=== PATIENT | female | born 1960 | race American Indian/Alaskan Native ===

== ENCOUNTER 2017-01-25 11:04 | Emergency (ER) | payer MEDICAID ==
[2017-01-25 11:14] VITALS: BP 176/96
[2017-01-25] MEDS ORDERED: HYDROmorphone 0.5 MG/0.5 ML Syringe IVPUSH ONE (11:39)
[2017-01-25] MEDS ORDERED: Sodium Chloride 0.9% 10 ML Syringe FLUSH PRN ×2 (11:39→13:06)
[2017-01-25] MEDS ORDERED: Sodium Chloride 0.9% 500 ML IV ONE (11:40)
--- NOTE | 2017-01-25 11:45 | EDM.PDOC ---
ED HPI GI/ABDOMINAL - General Chief Complaint: Back Pain or Injury Stated Complaint: SENT FROM [facility] FOR SIDE AND BACK PAIN Time Seen by Provider: 01/25/17 11:22 Source of Information: Reports: Patient History Limitations: Reports: No limitations - History of Present Illness INITIAL COMMENTS - FREE TEXT/NARRATIVE: Patient is a 56-year-old female who presents to the ED complaining of left upper quadrant abdominal pain, left flank pain, and left lower back pain. Started approximately 2 days ago while sitting. Pain has been constant with waxing waning in intensity since onset. She complains of more discomfort to her left CVA with radiation to her left upper quadrant. States she's had diarrhea which is normal for her. She's noticed some increase in flatulence. There's been no blood in her stool. She denies any pain with urination, nausea/ vomiting, chest pain, shortness of breath, increased acid reflux, dizziness, or any additional complaints. Patient does have history of palpitations and currently has a Holter monitor in place. She does have a history of hypertension and is on multiple medications. In addition she's diabetic with the last A1c is 7.0. She denies any previous history of similar discomfort. Pain currently is a 7/10. Timing/Duration: Reports: Constant, Waxing/waning Location: other (Left CVA) Quality: Reports: ache, stabbing, throbbing, radiating Severity: moderate Improves with: Reports: other (Nothing) Worsens with: Reports: palpation, other (Movement) Context: Denies: sick contact, recent trauma, lifting, activity/exercise Associated Symptoms (-Female): Reports: back pain, diarrhea (Chronic), loss of appetite. Denies: chest pain, groin pain, fever/chills, nausea/vomiting Treatments [employer]: Reports: Other (see below) (None stated) - Related Data Allergies/ADRs: Allergies Allergy/AdvReac Type Severity Reaction Status Date / Time diphenhydramine HCl Allergy Rash Verified 01/25/17 11:14 [From Benadryl] Home Meds: Home Meds Doxazosin [Doxazosin Mesylate] 2 mg PO DAILY 04/29/14 [History] Insulin Aspart [Novolog] 0 unit SQ DAILY 04/29/14 [History] Losartan [Cozaar] 100 mg PO DAILY 04/29/14 [History] Omeprazole 40 mg PO DAILY 04/29/14 [History] PARoxetine HCl [Paroxetine HCl] 60 mg PO DAILY 04/29/14 [History] atorvaSTATin [Lipitor] 20 mg PO DAILY 04/29/14 [History] Gemfibrozil 600 mg PO BID 06/17/14 [History] Liraglutide [Victoza] 0.6 units INJECT DAILY 06/17/14 [History] Acetaminophen/HYDROcodone [[place] 325-5 MG] 1 tab PO Q6H PRN #20 tablet 01/25/17 [Rx] Ondansetron [Zofran ODT] 4 mg PO Q6H PRN #15 tab.dis 01/25/17 [Rx] Past Medical History Cardiovascular History: Reports: Hypertension [employer] History: Reports: Endocrine/Metabolic History: Reports: Diabetes, type II - Past Surgical History GI Surgical History: Reports: Appendectomy Social & Family History - Tobacco Use Smoking Status *Q: Current Every Day Smoker Years of Tobacco use: 40 Packs/Tins Daily: 1 - Caffeine Use Caffeine Use: Reports: Soda - Alcohol Use Days Per Week of Alcohol Use: 0 - Recreational Drug Use Recreational Drug Use: No Recreational Drug Type: Reports: Other (see below) ED ROS GENERAL - Review of Systems Review Of Systems: See Below Constitutional: Reports: decreased appetite. Denies: fever, chills HEENT: Reports: No symptoms Respiratory: Denies: Shortness of Breath, Pleuritic Chest Pain, Cough, Sputum, Hemoptysis Cardiovascular: Reports: Blood pressure problem, Palpitations. Denies: Chest pain, Dyspnea on exertion, Edema, Lightheadedness, Orthopnea, PND, Syncope GI/Abdominal: Reports: Abdominal pain, Diarrhea, Decreased appetite, Flatus. Denies: Black stool, Bloody stool, Constipation, Distension, Hematemesis, Melena , Nausea, Vomiting : Reports: flank pain. Denies: dysuria, frequency, hematuria, pain, urgency Musculoskeletal: Reports: back pain (Left CVA low back) Skin: Denies: rash Neurological: Denies: Dizziness, Weakness ED EXAM, GI/ABD - Physical Exam Exam: See Below Exam Limited By: No limitations General Appearance: alert, WD/WN, mild distress Ears: hearing grossly normal Throat/Mouth: Normal voice, No airway compromise Neck: normal inspection, supple Respiratory/Chest: no respiratory distress, lungs clear, normal breath sounds, no accessory muscle use, chest non-tender Cardiovascular: normal peripheral pulses, regular rate, rhythm, no murmur GI/Abdominal: normal bowel sounds, soft, tenderness (Left upper/lower quadrant/ left flank/left CVA) Back Exam: normal inspection, CVA tenderness (L). No: decreased range of motion , muscle spasm, paraspinal tenderness, vertebral tenderness Extremities: normal inspection, non-tender, no pedal edema Neurological: alert, oriented, CN II-XII intact, normal cognition, no motor/ sensory deficits Psychiatric: normal affect, normal mood Skin Exam: Warm, Dry, Intact, Normal color, No rash Course - Vital Signs Last Recorded V/S: Last Vital Signs Temp 97.9 F 01/25/17 11:11 Pulse 81 01/25/17 11:11 Resp 18 01/25/17 11:11 BP 176/96 H 01/25/17 11:11 Pulse Ox 97 01/25/17 11:11 - Orders/Labs/Meds Orders: Active Orders 24 hr Category Date Time Status EKG Documentation Completion [RC] STAT Care 01/25/17 11:39 Active Peripheral IV Care [RC] . DIRECTED Care 01/25/17 11:40 Active Peripheral IV Insertion Adult [OM.PC] Stat Oth 01/25/17 11:39 Ordered Labs: Laboratory Tests 01/25/17 01/25/17 01/25/17 Range/Units 11:30 11:30 11:30 WBC 12.07 H (3.98-10.04) K/mm3 RBC 4.16 (3.98-5.22) M/mm3 Hgb 13.0 (11.2-15.7) gm/L Hct 38.9 (34.1-44.9) % MCV 93.5 (79.4-94.8) fl MCH 31.3 (25.6-32.2) pg MCHC 33.4 (32.2-35.5) g/dl RDW Std Deviation 45.6 (36.4-46.3) fL Plt Count 255 (182-369) K/mm3 MPV 10.9 (9.4-12.3) fl Neut % (Auto) 60.9 (34.0-71.1) % Lymph % (Auto) 29.4 (19.3-51.7) % [place] % (Auto) 7.7 (4.7-12.5) % Eos % (Auto) 1.2 (0.7-5.8) Baso % (Auto) 0.4 (0.1-1.2) % Neut # (Auto) 7.34 H (1.56-6.13) K/mm3 Lymph # (Auto) 3.55 (1.18-3.74) K/mm3 [place] # (Auto) 0.93 H (0.24-0.36) K/mm3 Eos # (Auto) 0.15 (0.04-0.36) K/mm3 Baso # (Auto) 0.05 (0.01-0.08) K/mm3 Sodium 140 (136-145) mEq/L Potassium 4.0 (3.5-5.1) mEq/L Chloride 104 (98-107) mEq/L Carbon Dioxide 23 (21-32) mEq/L Anion Gap 17.0 H (5-15) BUN 31 H (7-18) mg/dL Creatinine 1.1 H (0.55-1.02) mg/dL Est Cr Clr Drug Dosing 48.73 mL/min Estimated GFR (MDRD) 51 (>60) mL/min BUN/Creatinine Ratio 28.2 H (14-18) Glucose 131 H (74-106) mg/dL Calcium 9.3 (8.5-10.1) mg/dL Total Bilirubin 0.4 (0.2-1.0) mg/dL AST 107 H (15-37) U/L ALT 145 H (14-59) U/L Alkaline Phosphatase 105 (46-116) U/L Troponin I < 0.017 (0.00-0.056) ng/mL C-Reactive Protein < 0.2 (<1.0) mg/dL Total Protein 7.7 (6.4-8.2) g/dl Albumin 4.0 (3.4-5.0) g/dl Globulin 3.7 gm/dL Albumin/Globulin Ratio 1.1 (1-2) Triglycerides 257 H (<150) mg/dL Lipase 908 H (73-393) U/L Urine Color (Yellow) Urine Appearance (Clear) Urine pH (5.0-8.0) Ur Specific [place] (1.005-1.030) Urine Protein (Negative) Urine Glucose (UA) (Negative) Urine Ketones (Negative) Urine Occult Blood (Negative) Urine Nitrite (Negative) Urine Bilirubin (Negative) Urine Urobilinogen (0.2-1.0) Ur Leukocyte Esterase (Negative) Urine RBC (0-5) /hpf Urine WBC (0-5) /hpf Ur Epithelial Cells (0-5) /hpf Urine Bacteria (FEW) /hpf Urine Mucus (FEW) /hpf 01/25/17 Range/Units 12:17 WBC (3.98-10.04) K/mm3 RBC (3.98-5.22) M/mm3 Hgb (11.2-15.7) gm/L Hct (34.1-44.9) % MCV (79.4-94.8) fl MCH (25.6-32.2) pg MCHC (32.2-35.5) g/dl RDW Std Deviation (36.4-46.3) fL Plt Count (182-369) K/mm3 MPV (9.4-12.3) fl Neut % (Auto) (34.0-71.1) % Lymph % (Auto) (19.3-51.7) % [place] % (Auto) (4.7-12.5) % Eos % (Auto) (0.7-5.8) Baso % (Auto) (0.1-1.2) % Neut # (Auto) (1.56-6.13) K/mm3 Lymph # (Auto) (1.18-3.74) K/mm3 [place] # (Auto) (0.24-0.36) K/mm3 Eos # (Auto) (0.04-0.36) K/mm3 Baso # (Auto) (0.01-0.08) K/mm3 Sodium (136-145) mEq/L Potassium (3.5-5.1) mEq/L Chloride (98-107) mEq/L Carbon Dioxide (21-32) mEq/L Anion Gap (5-15) BUN (7-18) mg/dL Creatinine (0.55-1.02) mg/dL Est Cr Clr Drug Dosing mL/min Estimated GFR (MDRD) (>60) mL/min BUN/Creatinine Ratio (14-18) Glucose (74-106) mg/dL Calcium (8.5-10.1) mg/dL Total Bilirubin (0.2-1.0) mg/dL AST (15-37) U/L ALT (14-59) U/L Alkaline Phosphatase (46-116) U/L Troponin I (0.00-0.056) ng/mL C-Reactive Protein (<1.0) mg/dL Total Protein (6.4-8.2) g/dl Albumin (3.4-5.0) g/dl Globulin gm/dL Albumin/Globulin Ratio (1-2) Triglycerides (<150) mg/dL Lipase (73-393) U/L Urine Color Yellow (Yellow) Urine Appearance Clear (Clear) Urine pH 6.0 (5.0-8.0) Ur Specific [place] 1.020 (1.005-1.030) Urine Protein 2+ H (Negative) Urine Glucose (UA) Negative (Negative) Urine Ketones Negative (Negative) Urine Occult Blood Trace-intact H (Negative) Urine Nitrite Negative (Negative) Urine Bilirubin Negative (Negative) Urine Urobilinogen 0.2 (0.2-1.0) Ur Leukocyte Esterase Negative (Negative) Urine RBC 0-5 (0-5) /hpf Urine WBC 0-5 (0-5) /hpf Ur Epithelial Cells 0-5 (0-5) /hpf Urine Bacteria Few (FEW) /hpf Urine Mucus Not seen (FEW) /hpf Meds: Medications Discontinued Medications Generic Name Dose Route Start Last Admin Trade Name Freq PRN Reason Stop Dose Admin Diatrizoate Meglum/Diatrizoate Sod 120 ml 01/25/17 13:06 01/25/17 13:55 Gastrografin 37% PO 01/25/17 13:07 90 ml ONETIME ONE Administration Hydromorphone HCl 0.5 mg 01/25/17 11:39 01/25/17 12:13 Dilaudid IVPUSH 01/25/17 11:40 0.5 mg ONETIME ONE Administration Sodium Chloride 500 mls @ 125 mls/hr 01/25/17 11:40 01/25/17 12:10 Normal Saline IV 01/25/17 15:39 125 mls/hr .BOLUS ONE Administration Iopamidol 100 ml 01/25/17 13:06 01/25/17 13:55 Isovue-300 (61%) IVPUSH 01/25/17 13:07 100 ml ONETIME ONE Administration Sodium Chloride 10 ml 01/25/17 11:39 01/25/17 12:14 Saline Flush FLUSH 10 ml ASDIRECTED PRN Administration Keep Vein Open Sodium Chloride 10 ml 01/25/17 13:06 01/25/17 13:55 Saline Flush FLUSH 10 ml ONETIME PRN Administration IV FLUSH - Re-Assessments/Exams Free Text/Narrative Re-Assessment/Exam: IV started with normal saline, Zofran 4 mg IVP, and Dilaudid 0.5 mg IVP. Initial labs and studies include chem 14, CBC, CRP, lipase, UA with micro, EKG, chest x-ray, and abdominal x-ray. Labs reviewed: Cr 1.1, glucose 131, AST 107 ALT 143, bilirubin within normal limits, white blood cell count 12.07, with mild neutrophilia and left shift, CRP within normal limits, lipase elevated 908. EKG revealed sinus rhythm at a rate of 70 with normal P axis, [place] interval is 157 , QTC is 432, left anterior fascicular block, LV hypertrophy, no acute ST changes noted. Chest x-ray reviewed with Dr. Garcia with no acute abnormalities noted. Final interpretation is pending. X-ray of the abdomen revealed nonspecific air and stool pattern but no signs of obstruction. Interpretation is pending. 1245 Shared results of her labs with patient. She denies chronic alcohol use or changes in discomfort with food. She denies any history of pancreatitis or gallstones. Pain has improved with the above therapy. Ordered CT of the abdomen and pelvis with oral and IV contrast. CT abdomen and pelvis impression: Supple loops of mildly prominent small bowel. Contrast seen distal to these loops. Differential includes hypertonic effect oral contrast versus a very mild partial small bowel instructions. Please correlate with patient's symptoms. Incidental cyst within the left kidney. Numerous diverticuli without inflammatory changes within the sigmoid and descending colon. Other incidental findings. Nothing acute is appreciated. Pancreas appears within normal limits. 01/25/17 13:01 UA revealed 2+ protein and call blood trace. Patient has a history of hypercholesteremia. Will obtain triglycerides level since his can be a cause of pancreatitis. She is on a few medications that can contribute to pancreatitis as well. 01/25/[address] Singh and agrees this is a mild case of pancreatitis that can be managed as outpatient with close followup. Patient will be discharged home with instructions as documented. Departure - Departure Time of Disposition: 15:23 Disposition: Home, Self-Care 01 Condition: good Clinical Impression: Partial obstruction of small intestine Pancreatitis, acute Qualifiers: Pancreatitis type: unspecified pancreatitis type Acute pancreatitis complication: no infection or necrosis Qualified Code(s): K85.90 - Acute pancreatitis without necrosis or infection, unspecified Prescriptions: Acetaminophen/HYDROcodone [[place] 325-5 MG] 1 tab PO Q6H PRN #20 tablet PRN Reason: Pain Ondansetron [Zofran ODT] 4 mg PO Q6H PRN #15 tab.dis PRN Reason: Nausea Instructions: Acute Pancreatitis, [id number] Referrals: Emily Esquivel DO [Primary Care Provider] - Forms: ED Department Discharge Additional Instructions: As discussed you have a mild case of pancreatitis and partial small bowel obstruction. Most likely the small bowel obstruction is secondary to the mild case of pancreatitis. Treatment is watchful waiting and pain management. Take [place] one tab every 6 hours for severe pain. For nausea/vomiting takes Zofran 4 mg every 6 hours as well. Stick with clear liquid for the next 48 hours. Thereafter proceed with a low residue diet. You are on multiple medications that may contributing to this pancreatitis. In addition your chronic disease state such as diabetes and elevated triglycerides put you at increased risk for pancreatitis. Followup with your primary care provider this coming Saturday.Call that morning for appointment to be seen that day. Return back to the ED for any new or worsening symptoms. - My Orders Last 24 Hours: My Active Orders 01/25/17 11:39 EKG Documentation Completion [RC] STAT Peripheral IV Insertion Adult [OM.PC] Stat 01/25/17 11:40 Peripheral IV Care [RC] . DIRECTED - Assessment/Plan Last 24 Hours: My Active Orders 01/25/17 11:39 EKG Documentation Completion [RC] STAT Peripheral IV Insertion Adult [OM.PC] Stat 01/25/17 11:40 Peripheral IV Care [RC] . DIRECTED
[2017-01-25] MEDS ORDERED: Diatrizoate Meglumine/Diatrizoate Sodium 37% 120 ML Bottle PO ONE (13:06)
[2017-01-25] MEDS ORDERED: Iopamidol 612 MG/ML 100 ML Bottle IVPUSH ONE (13:06)
--- NOTE | 2017-01-25 13:37 | CR ---
Abdomen: Supine and upright views of the abdomen were obtained. Comparison: No previous abdominal x-ray, previous abdominal and pelvic CT exam of 10/03/12 is available. Bowel gas pattern appears normal. Slight degenerative change is scattered throughout the spine. Vascular calcification is noted within the iliac vessels. No free air is seen. No discrete soft tissue abnormality is appreciated. Impression: 1. Incidental findings. Diagnostic code #2
--- NOTE | 2017-01-25 13:37 | CR ---
Chest: Two views of the chest were obtained. Comparison: Previous chest x-ray of 06/17/14. Heart size is normal. Mild tortuosity of the thoracic aorta is seen. Slight increased density within the right lung base is seen. Findings felt most likely to be due to mild atelectasis. Lungs otherwise are clear. Bony structures are unremarkable. Impression: 1. Mild right basilar atelectasis. Nothing acute is seen on two-view chest x-ray. Diagnostic code #2
--- NOTE | 2017-01-25 14:47 | CT ---
CT abdomen and pelvis Technique: Multiple axial sections were obtained from above the dome of the diaphragm inferiorly through the pubic symphysis. Intravenous and oral contrast was utilized. Delayed images were also obtained through the bladder. Comparison: Previous noncontrast CT abdomen and pelvis exam of 10/03/12. Findings: Visualized lung bases shows mild interstitial change most likely due to slight fibrosis. Coronary artery calcification is also noted. Liver shows no focal parenchymal abnormality. Spleen appears within normal limits. Adrenal glands show no nodule. Pancreas is within normal limits. Cyst noted within the left kidney measuring 3.7 cm which is a stable finding from prior exam. Kidneys otherwise appear unremarkable. Aorta shows mild atherosclerotic change which continues into the iliac vessels without aneurysmal dilatation. No retroperitoneal adenopathy or mesenteric abnormalities are seen. No pelvic mass or adenopathy is seen. Numerous diverticuli are seen within the descending and sigmoid colon without inflammatory change of diverticulitis. Several loops of small bowel are mildly prominent in size. Delayed images shows contrast within the bladder. Bone window settings were reviewed showing degenerative change scattered throughout the thoracic and lumbar spine. Degenerative change is most severe within the apophyseal joints at L4-5 and L5-S1. Impression: 1. Several loops of mildly prominent small bowel. Contrast seen distal to these bowel loops. Differential includes hypertonic effect of oral contrast versus a very mild partial small bowel obstruction. Please correlate with the patient's symptoms. 2. Incidental cyst within the left kidney. Numerous diverticuli without inflammatory change within the sigmoid and descending colon. 3. Other incidental findings. Nothing acute is appreciated. Diagnostic code #3
== END 2017-01-25 15:46 | disposition home or self-care (01) ==
LOC: JD.ED 11:04
DX: K85.90 Acute pancreatitis without necrosis or infection, unspecified (principal); E11.9 Type 2 diabetes mellitus without complications; I10 Essential (primary) hypertension; F17.210 Nicotine dependence, cigarettes, uncomplicated; Z79.899 Other long term (current) drug therapy
CPT/HCPCS: 36415; 71020; 74020; 74177; 80053; 81001; 83690; 84478; 84484; 85025; 86140; 93005; 96361; 96374; 99284; J1170; J7040; J7050; Q9963; Q9967; 99285

== ENCOUNTER 2017-02-06 10:57 | Day surgery (SDC) | payer MEDICAID ==
--- NOTE | 2017-02-06 05:40 | PCM.HP ---
H&P History of Present Illness - General Date of Service: 02/06/17 Admit Problem/Dx: Reflux, heartburn, inability to wean, hx of nausea/vomiting, left upper/lower abdominal pain, diarrhea with fatty meals, hx of bloating, Source of Information: Patient History Limitations: Reports: No limitations - History of Present Illness Initial Comments - Free Text/Narative: The patient is a 56-year-old female referred by Dr. Esquivel for colonoscopy The patient was initially evaluated in the clinic on 01/04/17. She did go to ED on 01/25 and was diagnosed with acute pancreatitis and possible small bowel obstruction. She was instructed to discontinue metformin and follow up with PCP. She did see Dr. Esquivel on 01/29/17. Victoza was discontinued. It was felt patient had a drug induced pancreatitis. Symptoms were improving, patient had some residual LUQ pain. I do not see Lipase or Amylase were repeated. Patient the following additional changes medical history. She reports she has no upper abdominal pain today. This seemed to improve when she stopped because of. She has had a tender lower abdominal area since her visit to the emergency department and possible small bowel obstruction. She did return her event monitor early as she lives in the basement of her sister's home in the event monitor did not seem to tile picker an events when pressing a button. She was able to finish the bowel prep without problems. She reports her nausea and vomiting seem better. Her diarrhea seems better. Her bloating seems better. She reports she is feeling better after being off the Victoza. Her blood sugars at home range from 147-210. She did complete an event monitor as above. Preliminary report showed sinus rhythm and sinus tachycardia, no ectopy. Final results are not available in EPIC. When patient was last evaluated denied any constipation. Had diarrhea with milk , lactose intolerant. If she eats greasy foods will have diarrhea at times. Lower abdominal pain with greasy meal. Had left upper abdomen pain intermittently. NO: hematochezia/ melena/blood on tissue paper/hemorrhoids. Has 2-3 soft, brown, formed, BMs daily. Bowel movements are described as regular and easy to pass. No unintentional weight loss. Lost weight in past with Victoza. No change in stool caliber. No abdominal pain today. Denies history of ulcerative colitis or Crohn's disease. Denied any family history of inflammatory bowel disease or GI cancers.. Last colonoscopy was never. History of reflux, heartburn, controlled, with PPI and H2 omar, unable to wean. NO hx of EGD. Hx of nausea, vomiting for a while, one month prior to visit , this resolved. NO: dysphagia. No right upper abdominal pain. No seema/light colored stools. No greasy stools. At times will have lower abdominal pain/diarrhea with fatty meals. Patient reports hx of Elevated liver enzymes of unknown etiology. Has had US and MRI. 11/21/16: ULTRASOUND ABDOMEN LIMITED Gallbladder is normal. Coarsened hepatic echotexture consistent with chronic parenchymal disease. Consider liver MRI. Otherwise, the pancreas and bile ducts are normal. Patent hepatic and portal veins with antegrade flow. 12/05/2016: MRI OF THE ABDOMEN WITH AND WITHOUT CONTRAST FINDINGS: The liver is slightly heterogeneous in signal intensity with no focal masses identified before and after the administration of contrast. There is no evidence of intrahepatic biliary ductal ectasia. The gallbladder is normal. The pancreas, adrenal glands, and kidneys are unremarkable. The spleen is normal. IMPRESSION: No evidence of hepatic masses at this time. Last mammogram was 05/2016. NO: Family hx of breast cancer. - Related Data Allergies/Adverse Reactions: Allergies Allergy/AdvReac Type Severity Reaction Status Date / Time bee pollen Allergy Anaphylactic Verified 02/06/17 11:42 Shock diphenhydramine HCl Allergy Rash Verified 02/06/17 11:42 [From Benadryl] lactose Allergy gi upset Verified 02/06/17 11:42 Home Medications: Home Meds Losartan [Cozaar] 100 mg PO DAILY 04/29/14 [History] Ondansetron [Zofran ODT] 4 mg PO Q6H PRN #15 tab.dis 01/25/17 [Rx] Aspirin 81 mg PO Q48H 02/05/17 [History] EPINEPHrine [Epipen 2-Jarrett] 1 dose IM ONETIME PRN 02/05/17 [History] Hydrochlorothiazide [Hydrochlorothiazide] 12.5 mg PO DAILY 02/05/17 [History] Ibuprofen 200 - 600 mg PO Q6H PRN 02/05/17 [History] Ketoprofen 1 applic TOP ASDIRECTED PRN 02/05/17 [History] Omeprazole [Omeprazole] 20 mg PO DAILY 02/05/17 [History] Ranitidine [Zantac] 150 mg PO DAILY 02/05/17 [History] Venlafaxine HCl [Venlafaxine ER] 75 mg PO DAILY 02/05/17 [History] atorvaSTATin [Lipitor] 40 mg PO DAILY 02/05/17 [History] clonazePAM [Clonazepam] 1 mg PO BEDTIME 02/05/17 [History] metFORMIN [Glucophage] 1,000 mg PO DAILY 02/05/17 [History] Past Medical History Cardiovascular History: Reports: High cholesterol, Hypertension Respiratory History: Reports: None Gastrointestinal History: Reports: Pancreatitis, Other (see below) Other Gastrointestinal History: reflux, nausea, vomiting, LUQ and LLQ pain, diarrhea, bloating, increased liver enzymes, pancreatitis, post op nausea and vomiting Genitourinary History: Reports: Other (see below) Other Genitourinary History: ovary neoplasm 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 Musculoskeletal History: Reports: Other (see below) Other Musculoskeletal History: R ankle spasm, knee surgery Neurological History: Reports: Migraines Psychiatric History: Reports: Anxiety, Panic attack, Other (see below) Other Psychiatric History: etoh abuse Endocrine/Metabolic History: Reports: Diabetes, type II, Obesity/BMI 30+ Hematologic History: Reports: None Immunologic History: Reports: None Oncologic (Cancer) History: Reports: None Dermatologic History: Reports: None - Past Surgical History Head Surgeries/Procedures: Reports: None HEENT Surgical History: Reports: Detached retina GI Surgical History: Reports: Appendectomy Female Surgical History: Reports: Hysterectomy, Tubal ligation, Other (see below) Other Female Surgeries/Procedures: hysteroscopy Social & Family History - Tobacco Use Smoking Status *Q: Current Every Day Smoker Years of Tobacco use: 30 - Alcohol Use Days Per Week of Alcohol Use: 0 - Recreational Drug Use Recreational Drug Use: No Drug Use in Last 12 Months: No Recreational Drug Type: Reports: Other (see below) H&P Review of Systems - Review of Systems: Review Of Systems: See Below General: Reports: no symptoms. Denies: fever, chills HEENT: Reports: no symptoms Pulmonary: Reports: No Symptoms. Denies: Shortness of Breath Cardiovascular: Reports: no symptoms. Denies: chest pain, palpitations, lightheadedness Gastrointestinal: Reports: Abdominal pain (lower abdominal tenderness) Genitourinary: Reports: no symptoms Musculoskeletal: Reports: no symptoms Skin: Reports: no symptoms Psychiatric: Reports: no symptoms Neurological: Reports: No Symptoms Hematologic/Lymphatic: Reports: no symptoms Immunologic: Reports: no symptoms Exam - Exam Exam: See Below - Exam General: alert, oriented HEENT: Conjunctiva clear. No: Scleral icterus Lungs: Clear to auscultation, Normal respiratory effort Cardiovascular: regular rate, regular rhythm, normal S1, normal S2 Abdomen: normal bowel sounds, soft, tenderness (slight lower abdomen) Back Exam: normal inspection Extremities: normal inspection. No: clubbing, cyanosis, edema Skin: warm, dry, intact Neuro Extensive - Mental Status: alert, oriented x3, normal mood/affect, normal cognition, memory intact Psychiatric: alert, normal affect, normal mood *Q Meaningful Use (ADM) - VTE *Q VTE Criteria *Q: - Stroke *Q Stroke Criteria *Q: - AMI *Q AMI Criteria *Q: - Problem List (1) Reflux esophagitis SNOMED Code(s): 072106943 ICD Code: K21.0 - GASTRO-ESOPHAGEAL REFLUX DISEASE WITH ESOPHAGITIS Status : Acute Current Visit: Yes (2) Heartburn SNOMED Code(s): 07222712 ICD Code: R12 - HEARTBURN Status: Acute Current Visit: Yes (3) Nausea and vomiting SNOMED Code(s): 14478511 ICD Code: R11.2 - NAUSEA WITH VOMITING, UNSPECIFIED Status: Acute Current Visit: Yes (4) Bloating SNOMED Code(s): 123712126 ICD Code: R14.0 - ABDOMINAL DISTENSION (GASEOUS) Status: Acute Current Visit: Yes (5) Abdominal pain SNOMED Code(s): 04584511 ICD Code: R10.9 - UNSPECIFIED ABDOMINAL PAIN Status: Acute Current Visit : Yes (6) Diarrhea SNOMED Code(s): 87976445 ICD Code: R19.7 - DIARRHEA, UNSPECIFIED Status: Acute Current Visit: Yes Problem List Initiated/Reviewed/Updated: Yes Orders Last 24hrs: Active Orders 24 hr Category Date Time Status Peripheral IV Care [RC] . DIRECTED Care 02/06/17 00:01 Active Verify Patient Consent Obtain [RC] ASDIRECTED Care 02/06/17 00:01 Active Lactated Ringers [Ringers, Lactated] 1,000 ml Med 02/06/17 00:01 Active IV ASDIRECTED Lidocaine 1%/Sod Bicarbonate [Buffered Lidocaine 1% in Med 02/06/17 00:01 Active NS 8.4%] 0.25 ml IV ONETIME PRN Sodium Chloride 0.9% [Saline Flush] Med 02/06/17 00:01 Active 10 ml FLUSH ASDIRECTED PRN Medication Administration Instruction [OM.PC] Routine Oth 02/06/17 00:01 Ordered Peripheral IV Insertion Adult [OM.PC] Routine Oth 02/06/17 00:01 Ordered Medication Orders Lactated Ringer's (Ringers, Lactated) 1,000 mls @ 125 mls/hr IV ASDIRECTED MANNIE Stop: 02/06/17 23:00 Lidocaine/Sodium Bicarbonate (Buffered Lidocaine 1% In Ns 8.4%) 0.25 ml IV ONETIME PRN PRN Reason: Prior to IV Start Stop: 02/06/17 18:00 Sodium Chloride (Saline Flush) 10 ml FLUSH ASDIRECTED PRN PRN Reason: Keep Vein Open Stop: 02/06/17 18:00 Assessment/Plan Comment:: 56yr female with reflux, heartburn inability to wean, hx of nausea and vomiting , left upper/lower abdominal pain, diarrhea with fatty meals, hx of bloating, need for diagnostic EGD and diagnostic colonoscopy PLAN: We discussed performing a diagnostic EGD and diagnostic colonoscopy. We discussed the procedure and post operative expectations. Risks and benefits of the procedures were discussed, including pain, bleeding, infection, damage to surrounding structures, need for additional procedures, bowel perforation. Informed consent was obtained. This procedure will be done at [facility] today due to medical history. I personally reviewed the patient's previous medical records and laboratory studies. Patient verbalized understanding and agreed with care plan. This patient was evaluated with Dr. Perla Cortez. Plan formulated by Dr. Perla Cortez. SEAMUS Whitman scribing for Dr. Perla Cortez General Surgery Department [facility]
[~2017-02-06 10:57] MED LIST: Lactated Ringers 1,000 ML IV SCH; Lidocaine 1%/Sod Bicarbonate in NS 8.4% 1 ML Syringe IV PRN; Sodium Chloride 0.9% 10 ML Syringe FLUSH PRN
--- NOTE | 2017-02-06 11:20 | PCM.PREANE ---
Preanesthetic Assessment - Anesthesia/Transfusion/Family Hx Anesthesia History: Prior Anesthesia Reaction Type of Anesthesia Reaction: Excessive Nausea/Vomiting Family History of Anesthesia Reaction: No Transfusion History: No Prior Transfusion(s) Intubation History: Unknown - Review of Systems Pulmonary: No Symptoms (smokes 1 pack/day times 34 years.) Cardiovascular: No Symptoms (history of HTN), Palpitations, Lightheadedness ( with panic attacks.) Gastrointestinal: No symptoms (GERD), Nausea Neurological: No Symptoms (history of alcoholism), Headache, Difficulty Walking (left knee pain noted.) Other: Reports: None (sober for 27 years.), Easy Bruising, Diabetes (Blood sugar =198 @ 1122), Liver Problems (elevated liver enzymes/ and pancreatitis noted.), Sinus Problem (allergic rhinitis noted with seasonal allergies.), Depression, Anxiety (history of migraines) - Physical Assessment NPO Status Date: 02/05/17 NPO Status Time: 21:00 Pulse: 81 O2 Sat by Pulse Oximetry: 96 Respiratory Rate: 16 Blood Pressure: 156/85 Temperature: 36.3 C Height: 1.63 m Weight: 62.777 kg ASA Class: 3 Mental Status: Alert & Oriented x3 Airway Class: Mallampati = 2 Dentition: Reports: Missing Tooth/Teeth, Caries (poor dentition) Thyro-Mental Finger Breadths: 3 Mouth Opening Finger Breadths: 3 ROM/Head Extension: Full Lungs: Clear to auscultation, Normal respiratory effort Cardiovascular: Regular Rate, Regular Rhythm - Lab Values: Lab values noted and reviewed with results within an acceptable range to proceed with scheduled procedure. - Imaging/EKG Impressions: EKG: SR, borderline left axis deviation, no ischemia, left anterior fascicular block noted. CXR: mild right basilar atelectasis 03/26/16 Stress Test: negative - Allergies Allergies/Adverse Reactions: Allergies Allergy/AdvReac Type Severity Reaction Status Date / Time bee pollen Allergy Anaphylactic Verified 02/05/17 15:11 Shock diphenhydramine HCl Allergy Rash Verified 02/05/17 15:11 [From Benadryl] lactose Allergy gi upset Verified 02/05/17 15:11 - Anesthesia Plan Pre-Op Medication Ordered: None - Acknowledgements Anesthesia Type Planned: MAC Pt an Appropriate Candidate for the Planned Anesthesia: Yes Alternatives and Risks of Anesthesia Discussed w Pt/Guardian: Yes Pt/Guardian Understands and Agrees with Anesthesia Plan: Yes PreAnesthesia Questionnaire Cardiovascular History: Reports: High cholesterol, Hypertension Respiratory History: Reports: None Gastrointestinal History: Reports: Pancreatitis, Other (see below) Other Gastrointestinal History: reflux, nausea, vomiting, LUQ and LLQ pain, diarrhea, bloating, increased liver enzymes, pancreatitis, post op nausea and vomiting Genitourinary History: Reports: Other (see below) Other Genitourinary History: ovary neoplasm 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 Musculoskeletal History: Reports: Other (see below) Other Musculoskeletal History: R ankle spasm, knee surgery Neurological History: Reports: Migraines Psychiatric History: Reports: Anxiety, Panic attack, Other (see below) Other Psychiatric History: etoh abuse Endocrine/Metabolic History: Reports: Diabetes, type II, Obesity/BMI 30+ Hematologic History: Reports: None Immunologic History: Reports: None Oncologic (Cancer) History: Reports: None Dermatologic History: Reports: None - Past Surgical History Head Surgeries/Procedures: Reports: None HEENT Surgical History: Reports: Detached retina GI Surgical History: Reports: Appendectomy Female Surgical History: Reports: Hysterectomy, Tubal ligation, Other (see below) Other Female Surgeries/Procedures: hysteroscopy - SUBSTANCE USE Smoking Status *Q: Current Every Day Smoker Tobacco Use Within Last Twelve Months: Cigarettes Days Per Week of Alcohol Use: 0 Recreational Drug Use History: No Recreational Drug Type: Reports: Other (see below) - HOME MEDS Home Medications: Home Meds Losartan [Cozaar] 100 mg PO DAILY 04/29/14 [History] Ondansetron [Zofran ODT] 4 mg PO Q6H PRN #15 tab.dis 01/25/17 [Rx] Aspirin 81 mg PO Q48H 02/05/17 [History] EPINEPHrine [Epipen 2-Jarrett] 1 dose IM ONETIME PRN 02/05/17 [History] Hydrochlorothiazide [Hydrochlorothiazide] 12.5 mg PO DAILY 02/05/17 [History] Ibuprofen 200 - 600 mg PO Q6H PRN 02/05/17 [History] Ketoprofen 1 applic TOP ASDIRECTED PRN 02/05/17 [History] Omeprazole [Omeprazole] 20 mg PO DAILY 02/05/17 [History] Ranitidine [Zantac] 150 mg PO DAILY 02/05/17 [History] Venlafaxine HCl [Venlafaxine ER] 75 mg PO DAILY 02/05/17 [History] atorvaSTATin [Lipitor] 40 mg PO DAILY 02/05/17 [History] clonazePAM [Clonazepam] 1 mg PO BEDTIME 02/05/17 [History] metFORMIN [Glucophage] 1,000 mg PO DAILY 02/05/17 [History] - CURRENT (IN HOUSE) MEDS Current Meds: Current Medications Lactated Ringer's (Ringers, Lactated) 1,000 mls @ 125 mls/hr IV ASDIRECTED MANNIE Stop: 02/06/17 23:00 Lidocaine/Sodium Bicarbonate (Buffered Lidocaine 1% In Ns 8.4%) 0.25 ml IV ONETIME PRN PRN Reason: Prior to IV Start Stop: 02/06/17 18:00 Sodium Chloride (Saline Flush) 10 ml FLUSH ASDIRECTED PRN PRN Reason: Keep Vein Open Stop: 02/06/17 18:00
--- NOTE | 2017-02-06 12:08 | PCM48HPAN ---
Post Anesthesia Note - EVALUATION WITHIN 48HRS OF ANESTHETIC Vital Signs in Normal Range: Yes Patient Participated in Evaluation: Yes Respiratory Function Stable: Yes Airway Patent: Yes Cardiovascular Function Stable: Yes Hydration Status Stable: Yes Pain Control Satisfactory: Yes (pt is restless as wants to be up to be comfortable. denies pain.) Nausea and Vomiting Control Satisfactory: Yes Mental Status Recovered: Yes (pt states he needs to sit on the edge of the bed to be comfortable. )
[2017-02-06] MEDS ORDERED: Propofol 200 MG/20 ML SDV ONE ×2 (12:59→13:00)
--- NOTE | 2017-02-06 13:33 | PCM48HPAN ---
Post Anesthesia Note - EVALUATION WITHIN 48HRS OF ANESTHETIC Vital Signs in Normal Range: Yes Patient Participated in Evaluation: Yes Respiratory Function Stable: Yes Airway Patent: Yes Cardiovascular Function Stable: Yes Hydration Status Stable: Yes Pain Control Satisfactory: Yes Nausea and Vomiting Control Satisfactory: Yes Mental Status Recovered: Yes
--- NOTE | 2017-02-06 13:38 | PCM.OPNOTE ---
- General Post-Op/Procedure Note Date of Surgery/Procedure: 02/06/17 Operative Procedure(s): Diagnostic EGD with cold forceps biopsy, attempted colonoscopy Pre Op Diagnosis: Reflux, heartburn inability to wean off of PPI, history of nausea and vomiting, left sided abdominal pain (upper and lower), diarrhea with fatty meals, history of bloating Post-Op Diagnosis: Small hiatal hernia, gastric polyp, mild gastritis, unable to complete colonoscopy secondary coughing spasms Anesthesia Technique: MAC Primary Surgeon: Perla Cortez Anesthesia Provider: [place] Pathology: 1. Small bowel biopsy 2. Antral biopsy 3. Distal esophageal biopsy 4. Gastric polyp biopsy Fluid Replacement, Intraop: 900 (mL crystalloid) EBL in mLs: 1 Complications: None Condition: Good Free Text/Narrative:: INDICATION FOR PROCEDURE: The patient is a 56-year-old woman who was referred to me by Dr. Emily Esquivel for evaluation for reflux, heartburn with inability to wean off of PPI, history of nausea and vomiting, left sided abdominal pain ( upper and lower), diarrhea with fatty meals, and history of bloating. She has not had a colonoscopy previously. Performing a colonoscopy and EGD and the associated risks of the procedures had been discussed with the patient. The patient found these risks acceptable and agreed to proceed. DESCRIPTION OF PROCEDURE: The patient was taken to the operating room and placed in the left lateral decubitus position. After induction of adequate sedation, a bite block was placed. A standard Olympus gastroscope was inserted into the oropharynx and guided down the esophagus without difficulty. The gastroesophageal junction was appreciated at 38 cm from the teeth. There was no evidence of stricture or esophageal ulcerations. The scope was advanced into the stomach, and there was mild gastritis. The scope was passed into the proximal jejunum and the duodenum which were unremarkable. There were no petechiae or ulcerations. The proximal jejunum was grossly normal in appearance. Multiple cold forceps biopsies were obtained of the proximal jejunum and duodenum. The scope was withdrawn into the antrum, and additional cold forceps biopsies were obtained. The remainder of the gastric body was examined, and there was one gastric polyp along the greater curvature, this was biopsied with cold forceps. The scope was retroflexed, and there was a small hiatal hernia. The scope was straightened and withdrawn to the GE junction. Additional cold forceps biopsies were obtained of the distal esophagus. The scope was withdrawn through the remainder of the esophagus and no further abnormalities were noted. The posterior oropharynx was grossly normal in appearance. The scope was fully withdrawn and attention was then turned to the colonoscopy. A digital rectal exam was performed which was unremarkable. A pediatric Olympus colonoscope was inserted into the rectum, it was advanced to 30 cm. It was not able to be advanced further due to coughing spasms of the patient and decreasing oxygen saturation with increased sedation to control the spasms. The patient was not able to retain any air. The scope was withdrawn. The patient was awakened from sedation and transferred to the recovery room in stable condition having tolerated the procedure well. POSTOPERATIVE PLAN: I discussed with the patient and her family my intraoperative findings and recommendations. She will need further work-up from her PCP regarding her breathing, possibly starting inhalers, and preferably quitting smoking. We will reattempt colonoscopy when her pulmonary status has improved. I also would recommend gallbladder work-up as the patient' s upper endoscopy was so benign in appearance and her recent (2 weeks ago) history of pancreatitis. The patient will follow up in approximately 14 days to discuss pathology and rescheduling her colonoscopy. The patient is to continue Prilosec 20mg daily. I have asked the patient to follow a GERD\gastritis diet. The patient is to call with any worsening of symptoms or questions prior to the appointment.
[2017-02-06 14:48] VITALS: BP 153/83
== END 2017-02-06 14:30 | disposition home or self-care (01) ==
LOC: JD.SDS 10:57
PROVIDERS: ATTEND Surgery
PROC: 0DB38ZX Excision of Lower Esophagus, Via Natural or Artificial Opening Endoscopic, Diagnostic (ICD-10-PCS; principal; 2017-02-06)
PROC: 0DJD8ZZ Inspection of Lower Intestinal Tract, Via Natural or Artificial Opening Endoscopic (ICD-10-PCS; 2017-02-06)
DX: R12 Heartburn (principal); R11.2 Nausea with vomiting, unspecified; R10.10 Upper abdominal pain, unspecified; R10.30 Lower abdominal pain, unspecified; R19.7 Diarrhea, unspecified; K44.9 Diaphragmatic hernia without obstruction or gangrene; K31.7 Polyp of stomach and duodenum; Z12.11 Encounter for screening for malignant neoplasm of colon; Z53.09 Procedure and treatment not carried out because of other contraindication
CPT/HCPCS: 43239; 45378; 82962; 88305; J7120; J2704

== ENCOUNTER 2017-03-27 07:54 | Day surgery (SDC) | payer MEDICAID ==
[~2017-03-27 07:54] MED LIST changes: -Lidocaine 1%/Sod Bicarbonate in NS 8.4% 1 ML Syringe IV PRN; +Lidocaine 1%/Sod Bicarbonate in NS 8.4% 1 ML Syringe PRN; +Propofol 200 MG/20 ML SDV ONE
--- NOTE | 2017-03-27 08:45 | PCM.PREANE ---
Preanesthetic Assessment - Anesthesia/Transfusion/Family Hx Anesthesia History: Prior Anesthesia Reaction Type of Anesthesia Reaction: Excessive Nausea/Vomiting (history of PONV) Family History of Anesthesia Reaction: No Transfusion History: No Prior Transfusion(s) Intubation History: Unknown - Review of Systems General: No Symptoms Pulmonary: No Symptoms (History of coughing spasms/1 pack cigarettes per day times 44 years) Cardiovascular: No Symptoms (History of chest pain, HTN, elevated cholesterol), Palpitations (with panic attacks.), Dyspnea on Exertion Gastrointestinal: No symptoms (history of hiatal hernia, gastritis, history of PONV) Neurological: Numbness (only when on feet for long periods of time) Other: Reports: None (history of pancreatitits, history of alcohol abuse quit for 27 years.), Easy Bruising, Diabetes (830 blood sugar= 165), Liver Problems (liver enzymes are elevated.), Depression, Anxiety - Physical Assessment NPO Status Date: 03/26/17 NPO Status Time: 21:00 Pulse: 68 O2 Sat by Pulse Oximetry: 96 Respiratory Rate: 20 Blood Pressure: 129/79 Temperature: 37.0 C Vital Signs: Last Vital Signs Temp 37.0 C 03/27/17 08:00 Pulse 68 03/27/17 08:00 Resp 20 03/27/17 08:00 BP 129/79 03/27/17 08:00 Pulse Ox 96 03/27/17 08:00 Height: 1.63 m Weight: 61.235 kg ASA Class: 2 Mental Status: Alert & Oriented x3 Airway Class: Mallampati = 2 Dentition: Reports: Normal Dentition, Missing Tooth/Teeth, Caries Thyro-Mental Finger Breadths: 3 Mouth Opening Finger Breadths: 3 ROM/Head Extension: Full Lungs: Clear to auscultation, Normal respiratory effort Cardiovascular: Regular Rate, Regular Rhythm, No Murmurs - Lab Values: Laboratory Last Values POC Glucose 165 mg/dL (70-105) H 03/27/17 08:31 - Imaging/EKG Impressions: EKG: sinus rhythm with borderline left axis deviation - Allergies Allergies/Adverse Reactions: Allergies Allergy/AdvReac Type Severity Reaction Status Date / Time bee pollen Allergy Anaphylactic Verified 03/26/17 16:30 Shock diphenhydramine HCl Allergy Rash Verified 03/26/17 16:30 [From Benadryl] lactose AdvReac gi upset Verified 03/26/17 16:30 - Anesthesia Plan Pre-Op Medication Ordered: None - Acknowledgements Anesthesia Type Planned: MAC Pt an Appropriate Candidate for the Planned Anesthesia: Yes Alternatives and Risks of Anesthesia Discussed w Pt/Guardian: Yes Pt/Guardian Understands and Agrees with Anesthesia Plan: Yes PreAnesthesia Questionnaire HEENT History: Reports: Impaired Vision, Other (See Below) Other HEENT History: wears glasses Cardiovascular History: Reports: Angina, High Cholesterol, Hypertension Respiratory History: Reports: None, Other (See Below) Other Respiratory History: coughing spasms Gastrointestinal History: Reports: Chronic Diarrhea, Gastritis, Hiatal Hernia, Pancreatitis, Other (See Below) Other Gastrointestinal History: reflux, nausea, vomiting, LUQ and LLQ pain, diarrhea, bloating, increased liver enzymes, pancreatitis, post op nausea and vomiting Genitourinary History: Reports: Other (See Below) Other Genitourinary History: ovary neoplasm 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: Musculoskeletal History: Reports: Other (See Below) Other Musculoskeletal History: R ankle spasm, knee surgery Neurological History: Reports: Migraines Psychiatric History: Reports: Anxiety, Depression, Panic Attack, Other (See Below) Other Psychiatric History: etoh abuse Endocrine/Metabolic History: Reports: Diabetes, Type II Hematologic History: Reports: None Immunologic History: Reports: None Oncologic (Cancer) History: Reports: None Dermatologic History: Reports: None - Past Surgical History Head Surgeries/Procedures: Reports: None HEENT Surgical History: Reports: Detached Retina GI Surgical History: Reports: Appendectomy, Colonoscopy, EGD Female Surgical History: Reports: Hysterectomy, Tubal Ligation, Other (See Below) Other Female Surgeries/Procedures: hysteroscopy Musculoskeletal Surgical History: Reports: Arthroscopic Knee Other Musculoskeletal Surgeries/Procedures:: Left knee arthroscopy for torn meniscus - SUBSTANCE USE Smoking Status *Q: Current Every Day Smoker Tobacco Use Within Last Twelve Months: Cigarettes Days Per Week of Alcohol Use: 0 Recreational Drug Use History: No Recreational Drug Type: Reports: Other (see below) - HOME MEDS Home Medications: Home Meds Losartan [Cozaar] 100 mg PO DAILY 04/29/14 [History] Ondansetron [Zofran ODT] 4 mg PO Q6H PRN #15 tab.dis 01/25/17 [Rx] Aspirin 81 mg PO Q48H 02/05/17 [History] EPINEPHrine [Epipen 2-Jarrett] 1 dose IM ONETIME PRN 02/05/17 [History] Hydrochlorothiazide 12.5 mg PO DAILY 02/05/17 [History] Ibuprofen 200 - 600 mg PO Q6H PRN 02/05/17 [History] Ketoprofen 1 applic TOP ASDIRECTED PRN 02/05/17 [History] Omeprazole 20 mg PO DAILY 02/05/17 [History] Ranitidine [Zantac] 150 mg PO DAILY 02/05/17 [History] Venlafaxine HCl [Venlafaxine ER] 75 mg PO DAILY 02/05/17 [History] atorvaSTATin [Lipitor] 40 mg PO DAILY 02/05/17 [History] clonazePAM [Clonazepam] 1 mg PO BEDTIME 02/05/17 [History] metFORMIN [Glucophage] 1,000 mg PO DAILY 02/05/17 [History] Hydrocodone/Acetaminophen [Hydrocodon-Acetaminophen 5-325] 1 tab PO Q6H PRN [History] Insulin Glarg,Human.Rec.Analog [LantUS Solostar] 18 units SQ DAILY 03/26/17 [ History] - CURRENT (IN HOUSE) MEDS Current Meds: Current Medications Lactated Ringer's (Ringers, Lactated) 1,000 mls @ 125 mls/hr IV ASDIRECTED MANNIE Stop: 03/27/17 23:00 Last Admin: 03/27/17 08:10 Dose: 125 mls/hr Lidocaine/Sodium Bicarbonate (Buffered Lidocaine 1% In Ns 8.4%) 0.25 ml .XX ONETIME PRN PRN Reason: Prior to IV Start Stop: 03/27/17 18:00 Last Admin: 03/27/17 08:09 Dose: 0.25 ml Sodium Chloride (Saline Flush) 10 ml FLUSH ASDIRECTED PRN PRN Reason: Keep Vein Open Stop: 03/27/17 18:00 Discontinued Medications Propofol (Diprivan 20 Ml) Confirm Administered Dose 200 mg .ROUTE .STK-MED ONE Stop: 03/27/17 07:09
[2017-03-27] MEDS ORDERED: Propofol 200 MG/20 ML SDV ONE (09:58)
--- NOTE | 2017-03-27 10:07 | PCM.OPNOTE ---
- General Post-Op/Procedure Note Date of Surgery/Procedure: 03/27/17 Operative Procedure(s): Colonoscopy with cold forceps polypectomy Pre Op Diagnosis: Incomplete colonoscopy Post-Op Diagnosis: Severe diverticulosis of the sigmoid colon, colon polyps Anesthesia Technique: MAC Primary Surgeon: Perla Cortez Anesthesia Provider: [place] Pathology: 1. Splenic flexure polyps x2 2. Rectal polyp EBL in mLs: 1 Complications: None Condition: Good Free Text/Narrative:: FLUIDS: 900 mL crystalloid INDICATION FOR PROCEDURE: The patient is a 56-year-old woman who was referred to me by Dr. Emily Esquivel for evaluation for colonoscopy. We had previously attempted a colonoscopy, however the patient had severe coughing spasms and we were not able to complete the procedure. She has tried to cut back on smoking and has seen her PCP. She presents today for a second attempt at colonoscopy. Performing a diagnostic colonoscopy, due to a history of abdominal pain and loose stools with fatty meals, with the associated risks of the procedure had been discussed with the patient. The patient found these risks acceptable and agreed to proceed. DESCRIPTION OF PROCEDURE: The patient was taken to the operating room and placed in left lateral decubitus position. After induction of adequate sedation , a digital rectal exam was performed which was unremarkable. A pediatric Olympus colonoscope was inserted into the rectum and guided under direct visualization to the appendiceal orifice and ileocecal valve. The scope was then slowly withdrawn through the colon. The quality of the prep was good. There was no evidence of angiodysplasias. Severe diverticulosis was noted in the sigmoid colon. 2 small sessile splenic flexure polyps were noted and were removed using cold forceps. One small sessile rectal polyp was noted and removed with cold forceps. The scope was withdrawn into the rectum and retroflexed. There was no significant prominence of the patient's internal hemorrhoids. The scope was straightened, the colon was desufflated, and the scope was withdrawn. The patient was awakened from sedation and transferred to the recovery room in stable condition having tolerated the procedure well. POSTOPERATIVE PLAN: I discussed with the patient's my intraoperative findings and recommendations. She is to return to the clinic in approximately 2 weeks to discuss her pathology and plans for further management of her abdominal symptoms. She has had an abdominal ultrasound which was unremarkable, as I have previously recommended a gallbladder workup, she still needs to have a HIDA scan performed.
[2017-03-27 11:17] VITALS: BP 175/82
== END 2017-03-27 10:53 | disposition home or self-care (01) ==
LOC: JD.SDS 07:54
PROVIDERS: ATTEND Surgery
PROC: 0DBN8ZX Excision of Sigmoid Colon, Via Natural or Artificial Opening Endoscopic, Diagnostic (ICD-10-PCS; principal; 2017-03-27)
PROC: 0DBP8ZX Excision of Rectum, Via Natural or Artificial Opening Endoscopic, Diagnostic (ICD-10-PCS; 2017-03-27)
DX: R11.0 Nausea (principal); R19.7 Diarrhea, unspecified; K57.30 Diverticulosis of large intestine without perforation or abscess without bleeding; D12.5 Benign neoplasm of sigmoid colon; D12.8 Benign neoplasm of rectum; R05 Cough; F17.200 Nicotine dependence, unspecified, uncomplicated
CPT/HCPCS: 45380; 82962; J7120; 00810; J2704

== ENCOUNTER 2019-01-02 09:58 | Day surgery (SDC) | payer MEDICAID ==
[~2019-01-02 09:58] MED LIST changes: +Dexamethasone 4 MG/ML SDV ONE; +HYDROmorphone 0.5 MG/0.5 ML Syringe ONE; +Ketamine 500 mg/10 ML MDV ONE; +Ketorolac 30 MG/ML SDV ONE; -Lactated Ringers 1,000 ML IV SCH; +Lidocaine 1% 0 ML ONE; -Lidocaine 1%/Sod Bicarbonate in NS 8.4% 1 ML Syringe PRN; +Midazolam 1 MG/ML 2 ML SDV ONE; +Ondansetron 4 MG/2 ML SDV ONE; +Rocuronium 50 MG/5 ML Vial ONE; -Sodium Chloride 0.9% 10 ML Syringe FLUSH PRN; +fentaNYL 250 MCG/5 ML SDV ONE
[2019-01-02] MEDS ORDERED: Lidocaine 1%/Sod Bicarbonate in NS 8.4% 1 ML Syringe IDERM PRN (10:19)
[2019-01-02] MEDS ORDERED: Sodium Chloride 0.9% 10 ML Syringe FLUSH PRN (10:19)
[2019-01-02 10:28] VITALS: BP 125/75
[2019-01-02] MEDS ORDERED: Lactated Ringers 1,000 ML IV SCH (10:30)
[2019-01-02] MEDS ORDERED: Albuterol 0.083% 2.5 MG/3 ML Neb Soln NEB PRN (10:39)
--- NOTE | 2019-01-02 10:44 | PCM.PREANE ---
Preanesthetic Assessment - Anesthesia/Transfusion/Family Hx Anesthesia History: Prior Anesthesia Reaction Type of Anesthesia Reaction: Excessive Nausea/Vomiting Family History of Anesthesia Reaction: No Transfusion History: No Prior Transfusion(s) Intubation History: Unknown - Review of Systems General: No Symptoms Pulmonary: No Symptoms (COPD: 1 ppd times 46 years), Shortness of Breath Cardiovascular: No Symptoms (history of chest pain, HTN, elevated cholesterol), Chest Pain, Palpitations (with panic attacks), Dyspnea on Exertion Gastrointestinal: No Symptoms (History of hiatal hernia, GERD, PONV) Neurological: No Symptoms (History of PONV) Other: Reports: Easy Bruising, Diabetes (242 blood sugar @ 1022), Liver Problems (elevated liver enzymes noted/history of alcohol abuse quit drinking 29 years ago/history of pancreatitis), Depression, Anxiety - Physical Assessment NPO Status Date: 01/01/19 NPO Status Time: 21:30 Pulse: 70 O2 Sat by Pulse Oximetry: 96 Respiratory Rate: 16 Blood Pressure: 125/75 Temperature: 36.3 C Vital Signs: Last Vital Signs Temp 36.3 C 01/02/19 10:05 Pulse 70 01/02/19 10:05 Resp 16 01/02/19 10:05 BP 125/75 01/02/19 10:05 Pulse Ox 96 01/02/19 10:05 Height: 1.63 m Weight: 66.678 kg ASA Class: 3 Mental Status: Alert & Oriented x3 Airway Class: Mallampati = 2 Dentition: Reports: Normal Dentition, Missing Tooth/Teeth, Caries Thyro-Mental Finger Breadths: 3 Mouth Opening Finger Breadths: 3 ROM/Head Extension: Full Lungs: Clear to Auscultation, Normal Respiratory Effort Cardiovascular: Regular Rate, Regular Rhythm, No Murmurs - Lab Values: Laboratory Last Values POC Glucose 242 mg/dL (70-105) H 01/02/19 10:22 All lab values reviewed and noted and within acceptable ranges to proceed with procedure. Elevated liver enzymes and BUN, and CR noted. - Imaging/EKG Impressions: EKG: SR rate=80, with left axis deviation Stress Test: negative Echocardiogram: EF=60-65%, mildly dilated left atrium - Allergies Allergies/Adverse Reactions: Allergies Allergy/AdvReac Type Severity Reaction Status Date / Time bee pollen Allergy Anaphylactic Verified 01/01/19 15:34 Shock diphenhydramine HCl Allergy Rash Verified 01/01/19 15:34 [From Benadryl] lactose AdvReac gi upset Verified 01/01/19 15:34 - Anesthesia Plan Pre-Op Medication Ordered: Beta Julianne Beta Julianne: Metoprolol Med Last Dose Date: 01/02/19 Med Last Dose Time: 07:30 - Acknowledgements Anesthesia Type Planned: General Anesthesia Pt an Appropriate Candidate for the Planned Anesthesia: Yes Alternatives and Risks of Anesthesia Discussed w Pt/Guardian: Yes Pt/Guardian Understands and Agrees with Anesthesia Plan: Yes PreAnesthesia Questionnaire HEENT History: Reports: Impaired Vision, Other (See Below) Other HEENT History: wears glasses Cardiovascular History: Reports: Hypertension Respiratory History: Other Respiratory History: coughing spasms Gastrointestinal History: Reports: Pancreatitis, Other (See Below) Other Gastrointestinal History: reflux, nausea, vomiting, LUQ and LLQ pain, diarrhea, bloating, increased liver enzymes, pancreatitis, post op nausea and vomiting Genitourinary History: Reports: Other (See Below) Other Genitourinary History: ovary neoplasm 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: Musculoskeletal History: Reports: Other (See Below) Other Musculoskeletal History: R ankle spasm, knee surgery Neurological History: Reports: Migraines Psychiatric History: Reports: Anxiety, Panic Attack, Other (See Below) Other Psychiatric History: etoh abuse Endocrine/Metabolic History: Reports: Diabetes, Type II Hematologic History: Reports: None Immunologic History: Reports: None Oncologic (Cancer) History: Reports: None Dermatologic History: Reports: None - Past Surgical History Head Surgeries/Procedures: Reports: None HEENT Surgical History: Reports: Detached Retina Cardiovascular Surgical History: Reports: None Respiratory Surgical History: Reports: None GI Surgical History: Reports: Appendectomy, Colonoscopy, EGD Female Surgical History: Reports: Hysterectomy, Tubal Ligation, Other (See Below) Other Female Surgeries/Procedures: hysteroscopy Endocrine Surgical History: Reports: None Neurological Surgical History: Reports: None Musculoskeletal Surgical History: Reports: Arthroscopic Knee Other Musculoskeletal Surgeries/Procedures:: Left knee arthroscopy for torn meniscus Oncologic Surgical History: Reports: None Dermatological Surgical History: Reports: None - SUBSTANCE USE Smoking Status *Q: Current Every Day Smoker Recreational Drug Use History: No - HOME MEDS Home Medications: Home Meds Losartan [Cozaar] 100 mg PO DAILY 04/29/14 [History] Ondansetron [Zofran ODT] 4 mg PO Q6H PRN #15 tab.dis 01/25/17 [Rx] Aspirin 81 mg PO Q48H 02/05/17 [History] EPINEPHrine [Epipen 2-Jarrett] 1 dose IM ONETIME PRN 02/05/17 [History] Hydrochlorothiazide 25 mg PO DAILY 02/05/17 [History] Venlafaxine HCl [Venlafaxine ER] 75 mg PO DAILY 02/05/17 [History] atorvaSTATin [Lipitor] 40 mg PO BEDTIME 02/05/17 [History] clonazePAM [Clonazepam] 1 mg PO TID PRN 02/05/17 [History] metFORMIN [Glucophage] 1,000 mg PO BID 02/05/17 [History] Insulin Glarg,Human.Rec.Analog [LantUS Solostar] 35 units SQ BEDTIME 03/26/17 [ History] Dicyclomine [Bentyl] 10 mg PO QID PRN 01/01/19 [History] Insulin Aspart [NovoLOG] 7 units SQ TID 01/01/19 [History] Pantoprazole Sodium [Protonix] 40 mg PO DAILY 01/01/19 [History] Vitamin E 800 unit PO DAILY 01/01/19 [History] amLODIPine [Norvasc] 5 mg PO DAILY 01/01/19 [History] Metoprolol Succinate [Toprol XL] 12.5 mg PO DAILY 01/02/19 [History] - CURRENT (IN HOUSE) MEDS Current Meds: Current Medications Lactated Ringer's (Ringers, Lactated) 1,000 mls @ 125 mls/hr IV ASDIRECTED MANNIE Stop: 01/02/19 23:00 Lidocaine/Sodium Bicarbonate (Buffered Lidocaine 1% In Ns 8.4%) 0.25 ml IDERM ONETIME PRN PRN Reason: Prior to IV Start Stop: 01/02/19 23:00 Sodium Chloride (Saline Flush) 10 ml FLUSH ASDIRECTED PRN PRN Reason: Keep Vein Open Stop: 01/02/19 23:00 Discontinued Medications Dexamethasone (Dexamethasone) Confirm Administered Dose 4 mg .ROUTE .STK-MED ONE Stop: 01/02/19 09:12 Fentanyl (Sublimaze) Confirm Administered Dose 250 mcg .ROUTE .STK-MED ONE Stop: 01/02/19 09:03 Hydromorphone HCl (Dilaudid) Confirm Administered Dose 0.5 mg .ROUTE .STK-MED ONE Stop: 01/02/19 09:08 Lidocaine HCl (Xylocaine-Mpf 1%) Confirm Administered Dose 4 mls @ as directed .ROUTE .STK-MED ONE Stop: 01/02/19 09:04 Ketamine HCl (Ketalar) Confirm Administered Dose 500 mg .ROUTE .STK-MED ONE Stop: 01/02/19 09:08 Ketorolac Tromethamine (Toradol) Confirm Administered Dose 30 mg .ROUTE .STK- MED ONE Stop: 01/02/19 09:12 Midazolam HCl (Versed 1 Mg/Ml) Confirm Administered Dose 2 mg .ROUTE .STSolar Site Design-MED ONE Stop: 01/02/19 09:03 Ondansetron HCl (Zofran) Confirm Administered Dose 4 mg .ROUTE .STK-MED ONE Stop: 01/02/19 09:12 Propofol (Diprivan 20 Ml) Confirm Administered Dose 200 mg .ROUTE .STSolar Site Design-MED ONE Stop: 01/02/19 09:03 Rocuronium [place] (Zemuron) Confirm Administered Dose 50 mg .ROUTE .STK-MED ONE Stop: 01/02/19 09:04
[2019-01-02] MEDS ORDERED: Scopolamine 1.5 MG Transdermal Patch TRDERM ONE (11:15)
== END 2019-01-02 12:12 ==
LOC: JD.SDS 09:58
PROVIDERS: ATTEND Surgery
DX: R10.32 Left lower quadrant pain (principal); R10.12 Left upper quadrant pain; I10 Essential (primary) hypertension; E78.00 Pure hypercholesterolemia, unspecified; E11.9 Type 2 diabetes mellitus without complications; J44.9 Chronic obstructive pulmonary disease, unspecified; F17.210 Nicotine dependence, cigarettes, uncomplicated; K21.9 Gastro-esophageal reflux disease without esophagitis; Z88.8 Allergy status to other drugs, medicaments and biological substances; Z91.030 Bee allergy status; Z53.8 Procedure and treatment not carried out for other reasons; Z79.82 Long term (current) use of aspirin; Z79.4 Long term (current) use of insulin; Z79.899 Other long term (current) drug therapy
CPT/HCPCS: 82962; 94640; A9270; J7120; J1100; J1170; J1885; J2001; J2250; J2405; J2704; J3010

== ENCOUNTER 2019-03-20 06:57 | Day surgery (SDC) | payer MEDICAID ==
[~2019-03-20 06:57] MED LIST changes: +Albuterol 0.083% 2.5 MG/3 ML Neb Soln NEB PRN; -Dexamethasone 4 MG/ML SDV ONE; -HYDROmorphone 0.5 MG/0.5 ML Syringe ONE; -Ketamine 500 mg/10 ML MDV ONE; -Ketorolac 30 MG/ML SDV ONE; +Lactated Ringers 1,000 ML IV SCH; -Lidocaine 1% 0 ML ONE; +Lidocaine 1%/Sod Bicarbonate in NS 8.4% 1 ML Syringe IDERM PRN; -Midazolam 1 MG/ML 2 ML SDV ONE; -Ondansetron 4 MG/2 ML SDV ONE; -Rocuronium 50 MG/5 ML Vial ONE; +Scopolamine 1.5 MG Transdermal Patch TRDERM SCH; +Sodium Chloride 0.9% 10 ML Syringe FLUSH PRN; +fentaNYL 100 MCG/2 ML SDV ONE; -fentaNYL 250 MCG/5 ML SDV ONE
[2019-03-20] MEDS ORDERED: Rocuronium 50 MG/5 ML Vial ONE (06:58)
[2019-03-20] MEDS ORDERED: Midazolam 1 MG/ML 2 ML SDV ONE ×2 (06:58→07:36)
[2019-03-20] MEDS ORDERED: Ketorolac 30 MG/ML SDV ONE (06:58)
[2019-03-20] MEDS ORDERED: Dexamethasone 4 MG/ML SDV ONE ×2 (06:59)
[2019-03-20] MEDS ORDERED: Ondansetron 4 MG/2 ML SDV ONE ×2 (06:59→08:27)
[2019-03-20] MEDS ORDERED: fentaNYL 100 MCG/2 ML SDV ONE (07:02)
[2019-03-20] MEDS ORDERED: ceFAZolin 1 GM Vial ONE ×2 (07:09)
[2019-03-20] MEDS ORDERED: Lidocaine 1% with EPINEPHrine 1:100,000 20 ML MDV ONE ×2 (07:18→07:26)
[2019-03-20] MEDS ORDERED: Bupivacaine 0.5%/EPINEPHrine 1:200,000 50 ML MDV ONE (07:18)
[2019-03-20] MEDS: Lactated Ringers 1,000 ML IV SCH ×2 (07:25→10:59)
--- NOTE | 2019-03-20 07:26 | PCM.PREANE ---
Preanesthetic Assessment - Anesthesia/Transfusion/Family Hx Anesthesia History: Prior Anesthesia Without Reaction Family History of Anesthesia Reaction: No Transfusion History: No Prior Transfusion(s) Intubation History: Unknown - Review of Systems General: No Symptoms Pulmonary: Shortness of Breath, Wheezing Cardiovascular: No Symptoms Gastrointestinal: No Symptoms Other: Reports: Diabetes - Physical Assessment NPO Status Date: 03/19/19 NPO Status Time: 11:55 Height: 1.63 m Weight: 65.771 kg ASA Class: 3 Mental Status: Alert & Oriented x3 Airway Class: Mallampati = 2 Dentition: Reports: Missing Tooth/Teeth ROM/Head Extension: Full Lungs: Decreased Breath Sounds, Rales, Wheezing Cardiovascular: Regular Rate, Regular Rhythm - Allergies Allergies/Adverse Reactions: Allergies Allergy/AdvReac Type Severity Reaction Status Date / Time bee pollen Allergy Anaphylactic Verified 03/19/19 15:15 Shock diphenhydramine HCl Allergy Rash Verified 03/19/19 15:15 [From Benadryl] lactose AdvReac gi upset Verified 03/19/19 15:15 - Blood Blood Available: No Product(s) Available: None - Anesthesia Plan Beta Julianne: Metoprolol Med Last Dose Date: 03/20/19 Med Last Dose Time: 06:00 - Acknowledgements Anesthesia Type Planned: General Anesthesia Pt an Appropriate Candidate for the Planned Anesthesia: Yes Alternatives and Risks of Anesthesia Discussed w Pt/Guardian: Yes Pt/Guardian Understands and Agrees with Anesthesia Plan: Yes Additional Comments: has frequent panic attacks- took 17 units [place] last evening - no other insulin but all oral medication- Glucose - 128 this am- ordered NEb treat PreAnesthesia Questionnaire HEENT History: Reports: Impaired Vision, Other (See Below) Other HEENT History: wears glasses Cardiovascular History: Reports: Hypertension Respiratory History: Other Respiratory History: coughing spasms Gastrointestinal History: Reports: Pancreatitis, Other (See Below) Other Gastrointestinal History: reflux, nausea, vomiting, LUQ and LLQ pain, diarrhea, bloating, increased liver enzymes, pancreatitis, post op nausea and vomiting Genitourinary History: Reports: Other (See Below) Other Genitourinary History: ovary neoplasm 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: Musculoskeletal History: Reports: Other (See Below) Other Musculoskeletal History: R ankle spasm, knee surgery Neurological History: Reports: Migraines Psychiatric History: Reports: Anxiety, Panic Attack, Other (See Below) Other Psychiatric History: etoh abuse Endocrine/Metabolic History: Reports: Diabetes, Type II Hematologic History: Reports: None Immunologic History: Reports: None Oncologic (Cancer) History: Reports: None Dermatologic History: Reports: None - Past Surgical History Head Surgeries/Procedures: Reports: None HEENT Surgical History: Reports: Detached Retina Cardiovascular Surgical History: Reports: None Respiratory Surgical History: Reports: None GI Surgical History: Reports: Appendectomy, Colonoscopy, EGD Female Surgical History: Reports: Hysterectomy, Tubal Ligation, Other (See Below) Other Female Surgeries/Procedures: hysteroscopy Endocrine Surgical History: Reports: None Neurological Surgical History: Reports: None Musculoskeletal Surgical History: Reports: Arthroscopic Knee Other Musculoskeletal Surgeries/Procedures:: Left knee arthroscopy for torn meniscus Oncologic Surgical History: Reports: None Dermatological Surgical History: Reports: None - SUBSTANCE USE Smoking Status *Q: Current Every Day Smoker Recreational Drug Use History: No - HOME MEDS Home Medications: Home Meds Losartan [Cozaar] 100 mg PO DAILY 04/29/14 [History] Ondansetron [Zofran ODT] 4 mg PO Q6H PRN #15 tab.dis 01/25/17 [Rx] Aspirin 81 mg PO Q48H 02/05/17 [History] EPINEPHrine [Epipen 2-Jarrett] 1 dose IM ONETIME PRN 02/05/17 [History] Hydrochlorothiazide 25 mg PO DAILY 02/05/17 [History] Venlafaxine HCl [Venlafaxine ER] 75 mg PO DAILY 02/05/17 [History] atorvaSTATin [Lipitor] 40 mg PO BEDTIME 02/05/17 [History] clonazePAM [Clonazepam] 1 mg PO TID PRN 02/05/17 [History] metFORMIN [Glucophage] 1,000 mg PO BID 02/05/17 [History] Insulin Glarg,Human.Rec.Analog [LantUS Solostar] 35 units SQ BEDTIME 03/26/17 [ History] Dicyclomine [Bentyl] 10 mg PO QID PRN 01/01/19 [History] Insulin Aspart [NovoLOG] 7 units SQ TID 01/01/19 [History] Pantoprazole Sodium [Protonix] 40 mg PO DAILY 01/01/19 [History] Vitamin E 800 unit PO DAILY 01/01/19 [History] amLODIPine [Norvasc] 5 mg PO DAILY 01/01/19 [History] Metoprolol Succinate [Toprol XL] 12.5 mg PO DAILY 01/02/19 [History] - CURRENT (IN HOUSE) MEDS Current Meds: Current Medications Albuterol (Proventil Neb Soln) 2.5 mg NEB ONETIME PRN PRN Reason: bronchodilation Stop: 03/20/19 18:00 Lactated Ringer's (Ringers, Lactated) 1,000 mls @ 125 mls/hr IV ASDIRECTED MANNIE Stop: 03/20/19 23:00 Lidocaine/Sodium Bicarbonate (Buffered Lidocaine 1% In Ns 8.4%) 0.25 ml IDERM ONETIME PRN PRN Reason: Prior to IV Start Stop: 03/20/19 18:00 Scopolamine (Transderm-Scop) 1.5 mg TRDERM ONETIME MANNIE Stop: 03/20/19 18:00 Sodium Chloride (Saline Flush) 10 ml FLUSH ASDIRECTED PRN PRN Reason: Keep Vein Open Stop: 03/20/19 18:00 Discontinued Medications Bupivacaine HCl/Epinephrine Bitart (Marcaine 0.5%/Epinephrine 1:200,000) Confirm Administered Dose 50 ml .ROUTE .STK-MED ONE Stop: 03/20/19 07:19 Cefazolin Sodium (Ancef) Confirm Administered Dose 1 gm .ROUTE .STK-MED ONE Stop: 03/20/19 07:10 Cefazolin Sodium (Ancef) Confirm Administered Dose 1 gm .ROUTE .STK-MED ONE Stop: 03/20/19 07:10 Dexamethasone (Dexamethasone) Confirm Administered Dose 4 mg .ROUTE .STK-MED ONE Stop: 03/20/19 07:00 Dexamethasone (Dexamethasone) Confirm Administered Dose 4 mg .ROUTE .STK-MED ONE Stop: 03/20/19 07:00 Fentanyl (Sublimaze) Confirm Administered Dose 100 mcg .ROUTE .STK-MED ONE Stop: 03/20/19 06:58 Fentanyl (Sublimaze) Confirm Administered Dose 100 mcg .ROUTE .STK-MED ONE Stop: 03/20/19 07:03 Lactated Ringer's (Ringers, Lactated) 1,000 mls @ 125 mls/hr IV ASDIRECTED MANNIE Stop: 02/13/19 23:00 Ketorolac Tromethamine (Toradol) Confirm Administered Dose 30 mg .ROUTE .STK- MED ONE Stop: 03/20/19 06:59 Lidocaine/Epinephrine (Xylocaine 1% With Epinephrine 1:100,000) Confirm Administered Dose 20 ml .ROUTE .STK-MED ONE Stop: 03/20/19 07:19 Lidocaine/Sodium Bicarbonate (Buffered Lidocaine 1% In Ns 8.4%) 0.25 ml IDERM ONETIME PRN PRN Reason: Prior to IV Start Stop: 02/13/19 18:00 Midazolam HCl (Versed 1 Mg/Ml) Confirm Administered Dose 2 mg .ROUTE .STK-MED ONE Stop: 03/20/19 06:59 Ondansetron HCl (Zofran) Confirm Administered Dose 4 mg .ROUTE .STK-MED ONE Stop: 03/20/19 07:00 Propofol (Diprivan 20 Ml) Confirm Administered Dose 200 mg .ROUTE .STK-MED ONE Stop: 03/20/19 06:58 Rocuronium [place] (Zemuron) Confirm Administered Dose 50 mg .ROUTE .STK-MED ONE Stop: 03/20/19 06:59 Scopolamine (Transderm-Scop) 1.5 mg TRDERM ONETIME MANNIE Stop: 02/13/19 14:00 Sodium Chloride (Saline Flush) 10 ml FLUSH ASDIRECTED PRN PRN Reason: Keep Vein Open Stop: 02/13/19 18:00
[2019-03-20] MEDS ORDERED: Labetalol 100 MG/20 ML MDV ONE (08:35)
[2019-03-20] MEDS ORDERED: HYDROmorphone 0.5 MG/0.5 ML Syringe ONE ×2 (08:43→08:44)
[2019-03-20] MEDS ORDERED: Propofol 200 MG/20 ML SDV ONE (09:20)
[2019-03-20] MEDS ORDERED: Glycopyrrolate 0.2 MG/ML SDV ONE (09:30)
[2019-03-20] MEDS ORDERED: Phenylephrine 1% 10 MG/ML SDV ONE (09:32)
--- NOTE | 2019-03-20 09:46 | PCM.OPNOTE ---
- General Post-Op/Procedure Note Date of Surgery/Procedure: 03/20/19 Operative Procedure(s): laparoscopic cholecystectomy Findings: normal gallbladder anatomy Pre Op Diagnosis: biliary colic Post-Op Diagnosis: same Anesthesia Technique: General ET Tube Primary Surgeon: Taryn Castellanos Anesthesia Provider: Wily Yoo Pathology: gallbladder Fluid Replacement, Intraop: 1,400 Output, Urine Amount: 0 EBL in mLs: 15 Complications: none apparent Condition: Good
--- NOTE | 2019-03-20 09:47 | PCM.PRNOTE ---
- Free Text/Narrative Note: OPERATIVE REPORT Date of Surgery/Procedure: March 20, 2019 Operative Procedure(s): laparoscopic cholecystectomy Findings: normal gallbladder anatomy Pre Op Diagnosis: Biliary colic Post-Op Diagnosis: Same Anesthesia Technique: General ET Tube Primary Surgeon: Taryn Castellanos MD Anesthesia Provider: Kayla Yoo CRNA Pathology: Gallbladder Fluid Replacement, Intraop: 1400cc Output, Urine Amount: 0cc EBL: 15cc Drain/Tube Comments: None Indication for the procedure: The patient is a 58-year-old lady who presented to my office with symptoms of biliary colic. The patient was counseled for laparoscopic cholecystectomy, with possible conversion to open. After discussion of the risks of infection, bleeding and injury to the bile duct as well as increased complication from previous intra-abdominal surgery, the patient's consent was obtained. Description of the procedure: The patient presented to the outpatient holding area on the day of the procedure. The history and physical were verified and consent was present and on the chart. She had a preoperative nebulizer treatment for improvement of her respiratory status. The patient was taken back to the operating room and placed in supine position on the operating table. SCD boots were placed and functional prior to the start of the procedure. Preoperative antibiotics were administered according to SCIP protocol, Ancef 2 g IV. A surgical timeout was performed. The patient then had induction of general anesthesia and was intubated without difficulty. The patient was prepped and draped in standard surgical fashion. We began by making an infraumbilical vertical incision and deepened this down through subcutaneous fat to the level of the fascia. This was grasped and incised. We bluntly entered through the peritoneum and a finger sweep was done. A stay suture of 0 Vicryl was placed in the fascia. The 12 mm balloon Fortune port was then inserted into the abdomen and the balloon inflated. Insufflation was attached and we had appropriate opening pressures. The abdomen was then insufflated to 15 mmHg. We inserted a scope into the abdomen and inspected the area where we had entered. There was no evidence of injury to surrounding structures with no evidence of bile or bleeding. A TAP block was then performed using 1% lidocaine with epinephrine mixed with 0.5% bupivicaine with epinephrine. The patient was then positioned with head up and right side up to facilitate exposure of the gallbladder. We then proceeded with placing our additional ports. A 5mm port was placed in the epigastric region. Two additional 5mm ports placed under direct visualization in the right upper quadrant. Once we had sufficiently exposed the dome of the gallbladder. This was grasped and retracted cephalad. We proceeded with our dissection to expose the cystic duct and cystic artery. We did have a critical view. The cystic duct and artery were then clipped and cut using endoscopic scissors. We then proceeded to fully dissect the gallbladder off of the cystic plate using the Bovie device. The gallbladder was in place in the Endo Catch bag and withdrawn towards the umbilical port. We then inspected the area of the dissection. The blood in the area was removed using a Ray-Cornelius. There was no significant bleeding and hemostasis was achieved. We then inspected the port sites and desufflated the abdomen. The ports were then removed. The gallbladder was withdrawn through the umbilical port site. We then proceeded to close the umbilical port site using an 0 Vicryl stitch. We had good closure of the fascia. A superficial 4-0 monocryl suture was used to approximate the skin. The skin was covered with Dermabond surgical glue. The patient tolerated the procedure well, however, she did have a bronchospasm while trying to extubate. Albuterol was successful in breaking the spasm and she was then extubated. He was transported to the PACU in stable condition. All sponge, needle counts correct. I was scrubbed and actively participated in the entire procedure. No immediate complications noted. Complications: None apparent Condition: Good Taryn Castellanos MD General Surgery
[2019-03-20] MEDS ORDERED: Albuterol 0.083% 2.5 MG/3 ML Neb Soln ONE ×2 (09:48→10:01)
--- NOTE | 2019-03-20 11:06 | PCM.POSTAN ---
POST ANESTHESIA ASSESSMENT - MENTAL STATUS Mental Status: Oriented, Other (Drowsy) - VITAL SIGNS Pulse Rate: 54 SaO2: 92 Resp Rate: 64 Blood Pressure: 84/48 Temperature: 36.2 C - RESPIRATORY Respiratory Status: Respiratory Rate WNL, Airway Patent, O2 Saturation Stable, Supplemental Oxygen (Face Mask ), Wheezing - CARDIOVASCULAR CV Status: Pulse Rate WNL, Low Blood Pressure - GASTROINTESTINAL GI Status: No Symptoms - PAIN Pain Score: 0 - POST OP HYDRATION Hydration Status: Adequate & Stable - OBSERVATIONS Free Text/Narrative:: Mauro Yoo
--- NOTE | 2019-03-20 11:09 | CR ---
Chest: Portable view of the chest was obtained. Comparison: Prior chest x-ray of 01/25/17. Heart size is within normal limits for portable technique. Mild tortuosity of the thoracic aorta is seen. Lung markings are slightly increased which are believed to represent accentuation from portable technique. Minimal atelectasis is seen within the right cardiophrenic angle. Minimal left basilar atelectasis is noted. Bony structures are grossly intact. Impression: 1. Slight atelectasis. Nothing acute is otherwise seen on portable chest x-ray. Diagnostic code #2
[2019-03-20] MEDS ORDERED: Insulin Lispro 100 Units/ML 3 ML Vial SUBCUT SCH (13:00)
[2019-03-20 14:51] VITALS: BP 108/78
== END 2019-03-20 14:43 | disposition home or self-care (01) ==
LOC: JD.SDS 06:57
PROVIDERS: ATTEND Surgery
DX: K80.44 Calculus of bile duct with chronic cholecystitis without obstruction (principal); E11.9 Type 2 diabetes mellitus without complications; I10 Essential (primary) hypertension; E78.00 Pure hypercholesterolemia, unspecified; K21.9 Gastro-esophageal reflux disease without esophagitis; K57.32 Diverticulitis of large intestine without perforation or abscess without bleeding; F41.9 Anxiety disorder, unspecified; F32.9 Major depressive disorder, single episode, unspecified; F41.0 Panic disorder [episodic paroxysmal anxiety]; F17.210 Nicotine dependence, cigarettes, uncomplicated; Z79.82 Long term (current) use of aspirin; Z79.4 Long term (current) use of insulin; Z79.899 Other long term (current) drug therapy; Z88.8 Allergy status to other drugs, medicaments and biological substances; Z91.030 Bee allergy status; Z91.011 Allergy to milk products; Z98.890 Other specified postprocedural states
CPT/HCPCS: 47562; 71045; 82962; 94640; A9270; J0690; J1100; J1170; J1815; J1885; J2250; J2370; J2405; J2704; J3010; J3490; J7120; 00790

== ENCOUNTER 2021-02-18 11:07 | Emergency (ER) | payer MEDICAID ==
[2021-02-18 11:19] VITALS: BP 128/75; PULSE 74
[2021-02-18] MEDS ORDERED: methylPREDNISolone Sodium Succinate 125 MG/2 ML SDV IVPUSH ONE (11:26)
[2021-02-18] MEDS ORDERED: Sodium Chloride 0.9% 10 ML Syringe FLUSH PRN (11:26)
[2021-02-18] MEDS ORDERED: Famotidine 20 MG/2 ML SDV IVPUSH ONE (11:26)
--- NOTE | 2021-02-18 12:53 | EDM.PDOC ---
ED HPI GENERAL MEDICAL PROBLEM - General Chief Complaint: Allergic Reaction Stated Complaint: STUNG BY YELLOW JACKET AND IS ALLERGIC Time Seen by Provider: 02/18/21 11:12 Source of Information: Reports: Patient History Limitations: Reports: No Limitations - History of Present Illness INITIAL COMMENTS - FREE TEXT/NARRATIVE: The patient presents with a bee sting. She was outside and got stung in the left hand. She has no shortness of breath and no trouble breathing. She does have some swelling and pain to the sting site. She is very allergic to bees. She did not take anything. She normally has an epi pen but she had no refills. She has no fever, chills, cough, chest pain, abdominal pain, nausea or vomiting. Onset: Sudden Duration: Minutes: Location: Reports: Upper Extremity, Left (hand) Quality: Reports: Burning Severity: Moderate Improves with: Reports: None Worsens with: Reports: None Associated Symptoms: Reports: No Other Symptoms - Related Data Allergies Allergy/AdvReac Type Severity Reaction Status Date / Time bee pollen Allergy Anaphylactic Verified 02/18/21 11:19 Shock diphenhydramine HCl Allergy Rash Verified 02/18/21 11:19 [From Benadryl] lactose AdvReac gi upset Verified 02/18/21 11:19 Home Meds: Home Meds Losartan [Cozaar] 100 mg PO DAILY 04/29/14 [History] Ondansetron [Zofran ODT] 4 mg PO Q6H PRN #15 tab.dis 01/25/17 [Rx] Aspirin 81 mg PO Q48H 02/05/17 [History] Hydrochlorothiazide 25 mg PO DAILY 02/05/17 [History] Venlafaxine HCl [Venlafaxine ER] 75 mg PO DAILY 02/05/17 [History] atorvaSTATin [Lipitor] 40 mg PO BEDTIME 02/05/17 [History] clonazePAM [Clonazepam] 1 mg PO TID PRN 02/05/17 [History] metFORMIN [Glucophage] 500 mg PO BID 02/05/17 [History] Insulin Glarg,Human.Rec.Analog [LantUS Solostar] 35 units SQ BEDTIME 03/26/17 [History] Dicyclomine [Bentyl] 10 mg PO QID PRN 01/01/19 [History] Insulin Aspart [NovoLOG] 1 units SQ BID 01/01/19 [History] Pantoprazole Sodium [Protonix] 40 mg PO BID 01/01/19 [History] Vitamin E 800 unit PO DAILY 01/01/19 [History] amLODIPine [Norvasc] 5 mg PO DAILY 01/01/19 [History] Metoprolol Succinate [Toprol XL] 12.5 mg PO DAILY 01/02/19 [History] Acetaminophen/HYDROcodone [[place] 325-5 MG] 1 tab PO Q4H PRN 14 Days #40 tablet 03/20/19 [Rx] Docusate Sodium [Colace] 100 mg PO BID 20 Days #40 cap 03/20/19 [Rx] EPINEPHrine [Epipen 2-Jarrett] 0.3 mg IJ ONETIME PRN #1 auto.injct 02/18/21 [Rx] predniSONE [Prednisone] 40 mg PO DAILY #10 tablet 02/18/21 [Rx] Past Medical History HEENT History: Reports: Impaired Vision, Other (See Below) Other HEENT History: wears glasses Cardiovascular History: Reports: Hypertension Respiratory History: Other Respiratory History: coughing spasms Gastrointestinal History: Reports: Pancreatitis, Other (See Below) Other Gastrointestinal History: reflux, nausea, vomiting, LUQ and LLQ pain, diarrhea, bloating, increased liver enzymes, pancreatitis, post op nausea and vomiting Genitourinary History: Reports: Other (See Below) Other Genitourinary History: ovary neoplasm 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: Musculoskeletal History: Reports: Other (See Below) Other Musculoskeletal History: R ankle spasm, knee surgery Neurological History: Reports: Migraines Psychiatric History: Reports: Anxiety, Panic Attack, Other (See Below) Other Psychiatric History: etoh abuse Endocrine/Metabolic History: Reports: Diabetes, Type II Hematologic History: Reports: None Immunologic History: Reports: None Oncologic (Cancer) History: Reports: None Dermatologic History: Reports: None - Past Surgical History Head Surgeries/Procedures: Reports: None HEENT Surgical History: Reports: Detached Retina Cardiovascular Surgical History: Reports: None Respiratory Surgical History: Reports: None GI Surgical History: Reports: Appendectomy, Colonoscopy, EGD Female Surgical History: Reports: Hysterectomy, Tubal Ligation, Other (See Below) Other Female Surgeries/Procedures: hysteroscopy Endocrine Surgical History: Reports: None Neurological Surgical History: Reports: None Musculoskeletal Surgical History: Reports: Arthroscopic Knee Other Musculoskeletal Surgeries/Procedures:: Left knee arthroscopy for torn meniscus Oncologic Surgical History: Reports: None Dermatological Surgical History: Reports: None Social & Family History - Tobacco Use Tobacco Use Status *Q: Current Every Day Tobacco User Years of Tobacco use: 48 Packs/Tins Daily: 0.5 - Caffeine Use Caffeine Use: Reports: Soda - Recreational Drug Use Recreational Drug Use: No ED ROS ALLERGIC REACTION - Review of Systems Review Of Systems: See Below Constitutional: Reports: No Symptoms HEENT: Reports: No Symptoms Respiratory: Reports: No Symptoms Cardiovascular: Reports: No Symptoms Endocrine: Reports: No Symptoms GI/Abdominal: Reports: No Symptoms : Reports: No Symptoms Musculoskeletal: Reports: Other (bee sting to left hand) ED EXAM GENERAL NO PERIP PULSE - Physical Exam Exam: See Below Exam Limited By: No Limitations General Appearance: Alert, No Apparent Distress Ears: Normal External Exam Nose: Normal Inspection Head: Atraumatic, Normocephalic Neck: Normal Inspection, Supple Respiratory/Chest: No Respiratory Distress, Lungs Clear, Normal Breath Sounds Cardiovascular: Regular Rate, Rhythm, No Edema, No Murmur GI/Abdominal: Soft, Non-Tender, No Organomegaly, No Mass Extremities: Other (erythema and mild edema to the left hand on the palm) Course - Vital Signs Last Recorded V/S: Last Vital Signs Temp 97.1 F 02/18/21 11:15 Pulse 74 02/18/21 11:15 Resp 22 H 02/18/21 11:15 BP 128/75 02/18/21 11:15 Pulse Ox 98 02/18/21 11:15 - Orders/Labs/Meds Orders: Active Orders 24 hr Category Date Time Status Peripheral IV Care [RC] . DIRECTED Care 02/18/21 11:26 Active Sodium Chloride 0.9% [Saline Flush] Med 02/18/21 11:26 Active 10 ml FLUSH ASDIRECTED PRN Peripheral IV Insertion Adult [OM.PC] Routine Oth 02/18/21 11:26 Ordered Medication Orders Sodium Chloride (Sodium Chloride 0.9% 10 Ml Syringe) 10 ml FLUSH ASDIRECTED PRN PRN Reason: Keep Vein Open Last Admin: 02/18/21 11:32 Dose: 10 ml Documented by: ROSARIO Meds: Medications Generic Name Dose Route Start Last Admin Trade Name Freq PRN Reason Stop Dose Admin Sodium Chloride 10 ml 02/18/21 11:26 02/18/21 11:32 Sodium Chloride 0.9% 10 Ml Syringe FLUSH 10 ml ASDIRECTED PRN Administration Keep Vein Open Discontinued Medications Generic Name Dose Route Start Last Admin Trade Name Rachid PRN Reason Stop Dose Admin Famotidine 20 mg 02/18/21 11:26 02/18/21 11:32 Famotidine 20 Mg/2 Ml Sdv IVPUSH 02/18/21 11:27 20 mg ONETIME ONE Administration Methylprednisolone Sodium Succinate 125 mg 02/18/21 11:26 02/18/21 11:32 Methylprednisolone Sodium Succinate 125 Mg/2 Ml Sdv IVPUSH 02/18/21 11:27 125 mg ONETIME ONE Administration - Re-Assessments/Exams Free Text/Narrative Re-Assessment/Exam: 02/18/21 12:50 I ordered an IV saline lock, solu-medrol 125mg IV, and pepcid 20mg IV. She is doing good and would like to go home. I will discharge her home. Departure - Departure Time of Disposition: 12:55 Disposition: Home, Self-Care 01 Condition: Good Clinical Impression: Bee sting allergy - Discharge Information *PRESCRIPTION DRUG MONITORING PROGRAM REVIEWED*: Not Applicable *COPY OF PRESCRIPTION DRUG MONITORING REPORT IN PATIENT NEIL: Not Applicable Prescriptions: EPINEPHrine [Epipen 2-Jarrett] 0.3 mg IJ ONETIME PRN #1 auto.injct PRN Reason: Allergies predniSONE [Prednisone] 40 mg PO DAILY #10 tablet Referrals: Shane Lazo MD [Primary Care Provider] - 1 Week Additional Instructions: Take the prednisone daily for 5 days. Take pepcid 20mg daily for a week. Use the epipen as needed for anaphylactic reaction. Please return if you are worse. Sepsis Event Note (ED) - Evaluation Sepsis Screening Result: No Definite Risk - Focused Exam Vital Signs: Vital Signs Temp Pulse Resp BP Pulse Ox 02/18/21 11:15 97.1 F 74 22 H 128/75 98 - My Orders Last 24 Hours: My Active Orders 02/18/21 11:26 Peripheral IV Care [RC] . DIRECTED Sodium Chloride 0.9% [Saline Flush] 10 ml FLUSH ASDIRECTED PRN Peripheral IV Insertion Adult [OM.PC] Routine - Assessment/Plan Last 24 Hours: My Active Orders 02/18/21 11:26 Peripheral IV Care [RC] . DIRECTED Sodium Chloride 0.9% [Saline Flush] 10 ml FLUSH ASDIRECTED PRN Peripheral IV Insertion Adult [OM.PC] Routine
== END 2021-02-18 13:13 | disposition home or self-care (01) ==
LOC: JD.ED 11:07
DX: T65.91XA Toxic effect of unspecified substance, accidental (unintentional), initial encounter (principal); I10 Essential (primary) hypertension; E11.9 Type 2 diabetes mellitus without complications; Z88.8 Allergy status to other drugs, medicaments and biological substances; Z91.030 Bee allergy status; Z91.011 Allergy to milk products; Z72.0 Tobacco use
CPT/HCPCS: 96374; 96375; 99282; J2930; J3490; 99284

== ENCOUNTER 2022-08-07 14:37 | Emergency (ER) | payer MEDICAID ==
[2022-08-07 14:51] VITALS: BP 115/62; PULSE 84
[2022-08-07] MEDS ORDERED: Famotidine 20 MG/2 ML SDV IVPUSH ONE (15:20)
[2022-08-07] MEDS ORDERED: methylPREDNISolone Sodium Succinate 125 MG/2 ML SDV IVPUSH ONE (15:20)
== END 2022-08-07 17:27 | disposition home or self-care (01) ==
LOC: JD.ED 14:37
DX: T63.441A Toxic effect of venom of bees, accidental (unintentional), initial encounter (principal); I10 Essential (primary) hypertension; E11.9 Type 2 diabetes mellitus without complications; F17.210 Nicotine dependence, cigarettes, uncomplicated; Z91.030 Bee allergy status; Z91.011 Allergy to milk products; Z79.899 Other long term (current) drug therapy; Z79.82 Long term (current) use of aspirin; Z79.84 Long term (current) use of oral hypoglycemic drugs; Z79.4 Long term (current) use of insulin; Z90.49 Acquired absence of other specified parts of digestive tract; Z90.710 Acquired absence of both cervix and uterus
CPT/HCPCS: 96374; 96375; 99282; J2930; J3490